=== PATIENT | female | born 1960 | race African-American/Black ===

== ENCOUNTER 2017-05-24 19:48 | Observation (INO) | payer BC, OTHER ==
[~2017-05-24] VITALS: Ht 175.3 cm; Wt 82.4 kg
[~2017-05-24 19:48] MED LIST: AMBIEN10 M1 PO; AMBIEN5 MG PO; ASPIR 8181 M1; CALCIUM 500 MG1 EACH PO; DIAZEPAM5 MG PO; FEROSUL325 MG PO; FLEXERIL10 MG PO; FOLIC ACID0.4 MG PO; HYDROCODON-ACE1 EAC7 PO; HYDROCODON-ACE1 EAC8; HYDROCODONE; K-DUR; KLOR-CON M2020 MEQ PO; KLOR-CON20 MEQ PO; LO-DOSE ASPIRIN81 M1 PO; LOTREL 10/21 CAPSULE; LOTREL 10/21 CAPSULE PO; LOTREL 10/41 CAPSULE PO; LYRICA200 MG; MECLIZINE HCL25 MG PO; MELOXICAM15 MG PO; MULTIPLE VITAM1 EACH PO; OXYCODONE HCL5 MG PO; SENNA-TIME S T1 EACH PO; SINGULAIR10 MG PO; SKELAXIN400 M1 PO; SYSTANE LIQUID15 ML LEFT EYE; TIZANIDINE HCL4 MG PO; TRAMADOL HCL50 MG; ZOLPIDEM TARTRA10 MG PO
[2017-05-24 20:17] LABS: HEMATOCRIT 36.7 % (36.0-46.0); MCH 28.4 PG (29.0-34.0); MCHC 33.8 G/DL (30.0-36.0); MCV 84.2 FL (83-99); MEAN PLAT.VOLUME 10.2 uM^3 (9.5-12.4); PLATELET COUNT 241 K/uL (156-360); RBC DIS.WIDTH-CV 12.2 % (11.8-14.6); RBC DIS.WIDTH-SD 37.2 % (39-53); RED BLOOD COUNT 4.36 M/uL (3.80-5.20); WHITE BLOOD COUNT 8.2 K/uL (4.1-10.2)
[2017-05-24 20:26] LABS: CHLORIDE 107 mEq/L (99-109); SODIUM 142 mEq/L (136-147)
[2017-05-24 20:27] LABS: MAGNESIUM 2.1 mg/dL (1.3-2.7)
[2017-05-24 20:28] LABS: GLUCOSE 160 mg/dL (70-99)
[2017-05-24 20:30] LABS: ANION GAP 11 MEQ/L (2-14)
[2017-05-24 20:32] LABS: GFR ESTIMATE (CALCULATED) > 59 mL/min/
[2017-05-24 20:33] LABS: UREA NITROGEN (BUN) 8 mg/dL (9-23)
[2017-05-24 20:39] LABS: TROP-I INTERPRETATION NEGATIVE; TROPONIN-I < 0.01 ng/mL (0.0-0.30)
[2017-05-24 20:53] LABS: INTER. NORMALIZED RATIO 0.9; PROTHROMBIN TIME 10.6 SEC (10.2-12.9)
[2017-05-24 21:11] LABS: ADD MIUA? YES; BILIRUBIN NEGATIVE; BLOOD SMALL; COLOR STRAW ((YELLOW)); GLUCOSE (STRIP) NEGATIVE; KETONES NEGATIVE; LEUKOCYTES TRACE; NITRITE NEGATIVE; PROTEIN (STRIP) NEGATIVE; SPECIFIC GRAVITY 1.004 (1.000-1.030); UROBILINOGEN 0.2 MG/DL (0.2-1.0)
[2017-05-24 21:13] LABS: BACTERIA RARE /HPF; EPITHELIAL CELLS RARE /HPF; MUCUS TRACE /LPF; RED BLOOD CELLS 0-5 /HPF (0-5); UCUL ADDED? NO; WHITE BLOOD CELLS 0-5 /HPF (0-5)
[2017-05-24] MEDS ORDERED: TIZANIDINE HCL4 MG PO (21:33)
[2017-05-24] MEDS ORDERED: B-COMPLEX-VITA1 EACH PO (21:36)
[2017-05-24] MEDS ORDERED: COD LIVER OIL1 EAC3 PO (21:36)
[2017-05-24 23:01] LABS: HDL CHOLESTEROL 49 MG/DL (Desirable>=50); LDL CHOLESTEROL 120 mg/dL (Desirable<100); NON-HDL CHOLESTEROL 142 mg/dL (Desirable<160); TOTAL CHOLESTEROL 191 mg/dL (Desirable<200); TRIGLYCERIDES 111 MG/DL (Normal: <150)
[2017-05-25 00:05] VITALS: BP 105/62
[2017-05-25 04:13] VITALS: BP 85/45
[2017-05-25 05:00] VITALS: BP 92/52
[2017-05-25 06:10] VITALS: BP 101/59
[2017-05-25 07:48] VITALS: BP 92/56
[2017-05-25 08:14] LABS: Estimated Average Glucose 120 mg/dL (70-123); HEMOGLOBIN A1c (GLYCOHEMOGLOB) 5.8 % HGB (Below 5.7)
[2017-05-25 10:22] LABS: EOSINOPHIL (%) 1.4 % (0-5); EOSINOPHIL COUNT 0.1 K/uL (0-0.3); HEMATOCRIT 32.7 % (36.0-46.0); IMMATURE GRANULOCYTE (%) 0.5 % (0.0-0.7); INSTRUMENT ABS NEUTROPHIL CT 1.8 K/uL; LYMPHOCYTE COUNT 2.1 K/uL (1.0-2.8); MCH 29.2 PG (29.0-34.0); MCHC 33.3 G/DL (30.0-36.0); MCV 87.7 FL (83-99); MEAN PLAT.VOLUME 10.2 uM^3 (9.5-12.4); MONOCYTE (%) 7.4 % (3-12); MONOCYTE COUNT 0.3 K/uL (0-0.8); NEUTROPHIL (%) 40.6 % (45-76); NEUTROPHIL COUNT 1.8 K/uL (1.8-6.4); PLATELET COUNT 198 K/uL (156-360); RBC DIS.WIDTH-CV 12.6 % (11.8-14.6); RBC DIS.WIDTH-SD 40.2 % (39-53); RED BLOOD COUNT 3.73 M/uL (3.80-5.20); WHITE BLOOD COUNT 4.3 K/uL (4.1-10.2)
[2017-05-25 10:47] VITALS: BP 121/70
[2017-05-25 10:50] LABS: ANION GAP 5 MEQ/L (2-14); CHLORIDE 111 MEQ/L (99-109); GFR ESTIMATE (CALCULATED) > 59 mL/min/; POTASSIUM 3.5 MEQ/L (3.7-5.4); SAMPLE HEMOLYSIS CHECK 0; SAMPLE ICTERIC CHECK 0; SAMPLE LIPEMIA CHECK 0; SODIUM 143 MEQ/L (136-147); UREA NITROGEN (BUN) 5 mg/dL (9-23)
[2017-05-25 11:14] LABS: GLUCOSE 119 mg/dL (70-99)
[2017-05-25] MEDS ORDERED: LEVETIRACETAM500 MG PO (13:56)
== END 2017-05-25 15:21 | disposition home or self-care (01) ==
LOC: EME 19:48 → 5WEST 22:04 → EDOF 22:04 → ENRESERV 22:06 → 5WEST 23:47
PROVIDERS: Emergency Medicine; Hospitalist; Internal Medicine
DX: R56.9 Unspecified convulsions (principal); I10 Essential (primary) hypertension; E87.6 Hypokalemia; G43.909 Migraine, unspecified, not intractable, without status migrainosus; I73.9 Peripheral vascular disease, unspecified; I95.9 Hypotension, unspecified; E86.0 Dehydration; Z86.73 Personal history of transient ischemic attack (TIA), and cerebral infarction without residual deficits; M50.222 Other cervical disc displacement at C5-C6 level; G89.29 Other chronic pain; M54.9 Dorsalgia, unspecified; M79.7 Fibromyalgia; J45.909 Unspecified asthma, uncomplicated; Z98.1 Arthrodesis status
CPT/HCPCS: 70450; 70496; 70498; 70551; 71020; 80048; 80061; 81003; 83036; 83735; 84484; 85025; 85027; 85610; 93005; 95819; 99281; 99285; G0378; J0780; J1200; J1650; J7030; J7040

== ENCOUNTER 2017-10-06 11:44 | Emergency (ER) | payer BC, OTHER ==
[~2017-10-06] VITALS: Ht 175.3 cm; Wt 84.4 kg
[~2017-10-06 11:44] MED LIST changes: +B-COMPLEX-VITA1 EACH PO; +COD LIVER OIL1 EAC3 PO; +LEVETIRACETAM500 MG PO
[2017-10-06] MEDS ORDERED: ROZEREM8 MG PO (12:41)
[2017-10-06 13:59] LABS: HEMATOCRIT 35.5 % (36.0-46.0); HEMOGLOBIN 12.2 G/DL (11.9-15.5); MCHC 34.4 G/DL (30.0-36.0); MCV 84.3 FL (83-99); PLATELET COUNT 246 K/uL (156-360); RBC DIS.WIDTH-CV 12.5 % (11.8-14.6); RBC DIS.WIDTH-SD 37.9 % (39-53); RED BLOOD COUNT 4.21 M/uL (3.80-5.20); WHITE BLOOD COUNT 7.1 K/uL (4.1-10.2)
[2017-10-06 14:09] LABS: CHLORIDE 109 mEq/L (99-109); POTASSIUM 3.4 mEq/L (3.7-5.4); SODIUM 142 mEq/L (136-147)
[2017-10-06 14:11] LABS: GLUCOSE 128 mg/dL (70-99)
[2017-10-06 14:14] LABS: CREATININE 0.7 mg/dL (0.6-1.3); GFR ESTIMATE (CALCULATED) > 59 mL/min/
[2017-10-06 14:15] LABS: UREA NITROGEN (BUN) 6 mg/dL (9-23)
[2017-10-06] MEDS ORDERED: FIORICET 50-301 EAC1 PO (17:10)
[2017-10-06 17:19] VITALS: BP 123/89
== END 2017-10-06 17:19 | disposition home or self-care (01) ==
LOC: EME 11:44
PROVIDERS: Physician Assistant
PROC: 3E0S3GC Introduction of Other Therapeutic Substance into Epidural Space, Percutaneous Approach (ICD-10-PCS; principal; 2017-10-06)
DX: G97.1 Other reaction to spinal and lumbar puncture (principal); Y84.4 Aspiration of fluid as the cause of abnormal reaction of the patient, or of later complication, without mention of misadventure at the time of the procedure; I10 Essential (primary) hypertension; R56.9 Unspecified convulsions; J45.909 Unspecified asthma, uncomplicated; M79.7 Fibromyalgia; Z87.442 Personal history of urinary calculi; Z98.1 Arthrodesis status; Z79.891 Long term (current) use of opiate analgesic
CPT/HCPCS: 70450; 77003; 80048; 85027; 99281; 99284; C1755; J0780; J1100; J7030

== ENCOUNTER 2017-12-20 09:53 | Emergency (ER) | payer BC, OTHER ==
[~2017-12-20] VITALS: Ht 175.3 cm; Wt 79.8 kg
[~2017-12-20 09:53] MED LIST changes: +FIORICET 50-301 EAC1 PO; +ROZEREM8 MG PO
[2017-12-20 10:54] VITALS: BP 134/94
== END 2017-12-20 10:52 | disposition left against medical advice (07) ==
LOC: EME 09:53
DX: M79.601 Pain in right arm (principal); Z53.21 Procedure and treatment not carried out due to patient leaving prior to being seen by health care provider